=== PATIENT | female | born 1940 | race Two or more races ===

== ENCOUNTER 2019-01-22 15:12 | Inpatient (IN) | payer OTHER ==
[~2019-01-22] VITALS: Ht 157.5 cm; Wt 89.8 kg
[2019-02-20] MEDS ORDERED: LOSARTAN-HCTZ1 EACH PO (08:57)
== END 2019-03-01 14:17 | DRG 470 ==
LOC: O/R 02-20 08:00 → SURH 02-27 05:10 → SURG 02-27 08:00 → SURH 02-27 13:22
PROVIDERS: ADMIT Orthopaedic Surgery
PROC: 0SRC0J9 Replacement of Right Knee Joint with Synthetic Substitute, Cemented, Open Approach (ICD-10-PCS; principal; 2019-02-27 12:00)
DX: M17.11 Unilateral primary osteoarthritis, right knee (principal); D62 Acute posthemorrhagic anemia; I10 Essential (primary) hypertension; E78.2 Mixed hyperlipidemia